=== PATIENT | male | born 1995 | race African-American/Black ===

== ENCOUNTER 2017-08-27 22:25 | Emergency (ER) | payer MEDICAID ==
[~2017-08-27] VITALS: Ht 180.3 cm; Wt 69.0 kg
[2017-08-27 22:53] VITALS: BP 121/62
== END 2017-08-28 | disposition left against medical advice (07) ==
LOC: ER 23:05
DX: M79.622 Pain in left upper arm (principal); Z53.21 Procedure and treatment not carried out due to patient leaving prior to being seen by health care provider

== ENCOUNTER 2017-08-29 12:26 | Emergency (ER) | payer MEDICAID ==
[~2017-08-29] VITALS: Ht 180.3 cm; Wt 69.0 kg
[2017-08-29 12:47] VITALS: BP 128/82
== END 2017-08-29 19:05 | disposition left against medical advice (07) ==
LOC: ER 14:03
DX: Z53.21 Procedure and treatment not carried out due to patient leaving prior to being seen by health care provider (principal)